=== PATIENT | female | born 1975 ===

== ENCOUNTER 2019-04-13 09:54 | Outpatient (CLI) | payer OTHER ==
--- NOTE | 2019-04-14 12:26 | Mammography Report ---
Reason: SCREENING MAMMOGRAM Procedure Date: 04/13/2019 Accession Number: [id number] / [id number] Procedure: [facility] - Screening Mammo w/Brady CPT Code: FULL RESULT: EXAM: Screening Mammo w/Brady DATE: 04/13/2019 10:24 AM CLINICAL HISTORY: Baseline screening mammogram TECHNIQUE: (B) - Bilateral CC and MLO views were obtained. COMPARISON: None PARENCHYMAL PATTERN: (A) - The breasts demonstrate scattered fibroglandular densities bilaterally. FINDINGS: There are no suspicious masses, calcifications, or areas of distortion. IMPRESSION: Negative examination. BI-RADS category 1. RECOMMENDATION: (ANNUAL) - Recommend routine annual screening mammography. BI-RADS CATEGORY: (1) - Negative. STANDARD QUALIFYING STATEMENTS: 1. This examination was not reviewed with the aid of Computer-Aided Detection (CAD). 2. A negative or benign imaging report should not preclude biopsy if clinically suspicious findings are present. 3. Dense breasts may obscure an underlying neoplasm. 4. This examination was reviewed with the aid of 3D breast imaging (tomosynthesis).
== END 2019-04-13 09:55 | disposition home or self-care (01) ==
LOC: DI 09:54
PROVIDERS: ATTEND Nurse Practitioner Family
DX: Z12.31 Encounter for screening mammogram for malignant neoplasm of breast (principal)
CPT/HCPCS: 77063; 77067

== ENCOUNTER 2021-02-16 15:21 | Outpatient (CLI) | payer OTHER ==
--- NOTE | 2021-02-16 16:06 | SLEEP CARE CONSULTATION ---
Information from patient questionnaire entered by Mar Begum. I have reviewed and concur with the information entered by Mar Begum. This document represents the service I personally performed and the decisions made by me, Nataliia Lund ARNP. History of Present Illness Service Date and Time: 02/16/2021 1521 Reason for Visit: New patient Chief Complaint: reports: Snoring (Lifetime), Observed pauses in breathing (2 years), Frequent awakenings at night (more in the last couple years; also has a new puppy). denies: Unrefreshed sleep, Excessive daytime sleepiness Date of Onset: Lifetime for snoring, 2 years for observed pauses in breathing Usual bedtime: 10 P Time it takes to fall asleep: 5 min Snores at night: Yes Observed to quit breathing while asleep: Yes Sleeps alone due to snoring: No Number of times waking at night: 1 x Reasons for waking at night: reports: Bathroom Toss, Turn, or Twitch while sleeping: Yes (more in last couple years) Recalls having dreams: Yes Usually gets out of bed at: 7 A Feels refreshed in the morning: Yes Morning headache: No Sleepy or fatigued during the day: No Ever fallen asleep while driving: No Takes day naps: Yes (sometimes; averages 1 nap monthly) Dreams during day naps: No (Not sure) Prior sleep studies: No Additional HPI information: I had the pleasure of seeing BRITTANY WORTHY today regarding the possibility of her having a sleep disorder. Her current complaints are snoring and observed pauses in breathing. She snores loudly and has all her life. She states her partner has noticed that she will stop breathing and then gasp in her sleep. She does feel rested when she wakes up in the morning. She has normal energy during the day. She has not woken herself up snoring or choking. She is able to go to sleep quickly and sleeps for 8-9 hours on average. She has had a new puppy recently that has interrupted her sleep but this is improving. She is self- employed and will occasionally be able to take a nap during the day. - Parasomnia Symptoms Ever been unable to move upon waking from sleep: No Walks in sleep: Yes (as a child) Talks in sleep: Yes (as a child) Ever acted out dreams in sleep: No Ever felt weak in the knees when startled or emotional: No Bothered by creepy, crawly, restless sensations in legs: No Problems with memory or concentration: No Subjective Initial [place] Sleepiness Scale score: 3 (in 2020) Past Medical History Past Medical History: denies: Hypertension (watching due to family history; she does get white coat HTN at the doctors office), Diabetes, Arrythmia, Anxiety, Depression, GERD Social History 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 Patient is and lives in [place]. Have you smoked in the past 12 months: No Alcohol use: Yes Alcohol amount and frequency: 4 per month Caffeine use: Yes Caffeine amount and frequency: 2 cups coffee per day in the morning Family History Family history of sleep disordered breathing: No Family Hx Sleep Apnea: Sibling: Snoring Allergies and Home Medications Drug allergies reviewed: Yes (penicillin) Home medication list reviewed: Yes Allergy and home medication list: Multivitamins D3 Turmeric Review of Systems Weight loss over past 5 years: 10 Cardiovascular: reports: high blood pressure Gastrointestinal: denies: heartburn Neurological: denies: headaches Psychiatric: denies: anxiety, depression Ear/Nose/Throat: reports: wisdom teeth removed. denies: dry mouth/throat, tonsillectomy Endocrine: reports: too hot or cold Musculoskeletal: reports: joint swelling Immunologic: denies: allergies to food or environment Physical Exam Heart Rate: 85 O2 Saturation: 99 Height: 5 ft 7 in Weight: 158 lb Body Mass Index: 24.7 BMI Classification: Healthy weight Nostrils: patent to airflow Mouth and throat: narrow oropharynx Soft palate: long Hard palate: normal Uvula visualization: 50% Mallampati Class II Tongue: normal in size Tonsils: 1+ Chin and jaw: normal size and position Neck: normal w/o lymphadenopathy or thyromegaly Heart: regular rate and rhythm Lungs: clear bilaterally Impression and Plan 1. Suspected Obstructive Sleep Apnea-Hypopnea Syndrome, as suggested by a history of loud and irregular snoring, observed cessation of breath while asleep, gasping or choking in sleep, and frequent awakening during the night. Narrow oropharynx and obesity are common predisposing factors for obstructive sleep apnea-hypopnea syndrome. I recommend proceeding to polysomnography to confirm the diagnosis and to assess severity. If the patient has significant sleep disordered breathing, a manual CPAP titration study will also be performed to find the optimal treatment pressure. I informed the patient of what the sleep studies involve and after some discussion, obtained agreement to proceed. The pathophysiology of obstructive sleep apnea-hypopnea syndrome was discussed with the patient and health risks of cardiovascular and cerebrovascular disease if not treated. Risks of drowsy driving discussed in detail and patient advised to avoid long distance driving and to tack puller at the first sign of drowsiness. Patient agreed to plan. * Schedule polysomnography +- manual CPAP titration study and return in 1-2 weeks after the study to discuss result and initiate therapy. * Avoid long distance driving or driving when feeling sleepy. * Avoid alcohol, sedative and muscle relaxant around bedtime. * Attempt to lose weight. * Review instructions provided by trained office staff on how to prepare for the sleep study. * Return for follow-up after sleep study completed. Counseling Topics: Weight loss health impact Visit Type: In Office Time Spent with Patient (minutes): 31 Provider Statement: I spent 100% of the Face to Face Visit with the patient with greater than 50% spent counseling the patient and coordination of care.
== END 2021-02-16 15:22 | disposition home or self-care (01) ==
LOC: SC 15:21
PROVIDERS: ATTEND Nurse Practitioner Family
DX: R06.81 Apnea, not elsewhere classified (principal); R06.83 Snoring; G47.8 Other sleep disorders
CPT/HCPCS: 99203; 99212

== ENCOUNTER 2021-02-27 08:17 | Outpatient (CLI) | payer OTHER | END 2021-02-27 08:18 | disposition home or self-care (01) | LOC: SC 08:17 | PROVIDERS: ATTEND Nurse Practitioner Family | DX: G47.8 Other sleep disorders (principal); R06.81 Apnea, not elsewhere classified; R06.83 Snoring | CPT/HCPCS: 95806 ==

== ENCOUNTER 2021-03-08 13:03 | Outpatient (CLI) | payer OTHER ==
--- NOTE | 2021-03-08 13:20 | SLEEP CARE CONSULTATION ---
Information from patient questionnaire entered by Mahnaz Reich. I have reviewed and concur with the information entered by Mahnaz Reich. This document represents the service I personally performed and the decisions made by , Nataliia Lund ARNP. History of Present Illness Service Date and Time: 03/08/2021 1300 Initial [place] Sleepiness Scale score: 3 (in 2020) Current [place] Sleepiness Scale score: 3 Additional HPI information: BRITTANY WORTHY returns via Telehealth visit for follow up and results of the recently performed home sleep study. The patient was informed of the following findings: no significant sleep diso rdered breathing with an average AHI of 2.7 and a elsa oxygen saturation of 88%. Her supine AHI was elevated at 7.2 and nonsupine in normal range at 0.35. I explained the pathophysiology behind obstructive sleep apnea. Patient does not have sleep apnea and was advised how weight gain could increase the risk of developing sleep apnea in the future. I strongly encouraged the patient to lose weight. Patient does not have significant sleep disordered breathing but has elevated AHI in supine position so advised positional therapy. Methods to achieve positional management therapy were discussed; such as, positioning with pillows, wearing a T-shirt with tennis balls sewn into the back, Rematee shirt, Zzomba belt and Slumberbump belt. Pamphlets provided on how to obtain the commercially available products. Patient has moderate snoring. Snoring can be reduced by weight loss. Weight loss is best achieved with diet consult. Patient instructed to contact PCP for referral. Snoring can also be treated with an oral appliance from a dentist. Advised to check insurance coverage. In addition, an ENT evaluation can be do to see if other treatment is indicated. Patient was cautioned about risks of drowsy driving until sleepiness symptoms resolve. Sleep Study - Results Type of Sleep Study: Home sleep study Prior sleep studies: No Polysomnography/Home Sleep Study results: Physician Impression: The quality of the study is good. The length of the study is adequate (> 240 minutes). Please also see the tabulated and graphic data. 1. No significant sleep disordered breathing, with an AHI of 2.7/hr and elsa SaO2 of 88%. During the study, the patient had 18 apneas (18 obstructive, 0 central, 0 mixed) and 5 hypopneas. The longest episode lasted 57.5 seconds. The few respiratory events occurred almost exclusively during supine sleep (supine AHI was 7.2 and non-supine, 0.35). 2. Hypoxemia (ICD-10 R09.02), minimal, with the lowest oxygen saturation of 88 % and 0.1 minutes with SaO2 under 90%. Baseline oxygen saturation was normal (Average oxygen saturation was 96%). Allergies and Home Medications Home medication list reviewed: Yes (no new meds) Review of Systems Review of systems same as previous: Yes (no changes) Physical Exam Vital signs obtained and entered by: telehealth visit to reduce exposure during Covid pandemic Height: 5 ft 7 in Impression and Plan Snoring but no significant sleep disordered breathing. Patient advised that often weight loss will reduce snoring as well as apnea risk. An oral appliance can also be used for snoring. This would require a dental consultation. Patient cautioned not to use other online appliances as can cause bite issues. A list of accredited dentists in [facility] and one local dentist who makes oral appliances is available in office. Patient is advised to check if insurance will cover. An ENT consult can also be helpful to determine if any other treatment is an option. Patient was advised to avoid sleeping supine since her supine AHI is elevated. She voiced understanding. * Attempt to lose weight * Avoid alcohol consumption near bedtime * The patient is cautioned about driving until sleepiness is completely resolved. * Return in as needed for follow up. Counseling Topics: Weight loss health impact Visit Type: Telehealth Video Video Type: VSee Patient Location: Home Location of Provider: Office Patient agrees and consents to this telehealth visit type: Yes Patient agrees to have their insurance billed: Yes Time Spent with Patient (minutes): 20 Provider Statement: I spent 100% of the Telehealth Video Call with the patient with greater than 50% spent counseling the patient and coordination of care.
== END 2021-03-08 13:04 | disposition home or self-care (01) ==
LOC: SC 13:03
PROVIDERS: ATTEND Nurse Practitioner Family
DX: R06.83 Snoring (principal); G47.8 Other sleep disorders